=== PATIENT | female | born 1945 | race Caucasian/White ===

== ENCOUNTER → 2020-10-10 | Outpatient (CLI) | payer MEDICARE ==
[~2020-10-10] MED LIST: VISIPAQUE 320 MG/ML, 150ML BOTTLE ONE
[2020-10-10 10:36] LABS: CREATININE 0.94 mg/dL (0.55-1.02)
== END | disposition home or self-care (01) ==
LOC: CVU 09:19
PROVIDERS: ATTEND Internal Medicine Cardiovascular Disease
DX: I65.23 Occlusion and stenosis of bilateral carotid arteries (principal); N94.89 Other specified conditions associated with female genital organs and menstrual cycle; I10 Essential (primary) hypertension; R20.0 Anesthesia of skin; I35.8 Other nonrheumatic aortic valve disorders; Z86.711 Personal history of pulmonary embolism
CPT/HCPCS: 36415; 71275; 74174; 82565; 93880; Q9967

== ENCOUNTER 2020-10-21 10:08 | Inpatient (IN) | payer MEDICARE ==
[~2020-10-21] VITALS: Ht 161.3 cm; Wt 100.6 kg
[2020-10-21] MEDS ORDERED: ONDANSETRON 2MG/ML, 2ML IV PRN (11:00)
[2020-10-21] MEDS ORDERED: SODIUM CHLORIDE 0.9% 1,000 ML IV ONE (11:00)
[2020-10-21] MEDS ORDERED: IRBE300T8 PO (11:19)
[2020-10-21] MEDS ORDERED: ATOR20TA37 PO (11:19)
[2020-10-21] MEDS ORDERED: MELO7.5T31 PO (11:19)
[2020-10-21] MEDS ORDERED: CHLO25TA PO (11:19)
[2020-10-21] MEDS ORDERED: METH2.5T PO (11:19)
[2020-10-21] MEDS ORDERED: CARV12.52 PO ×2 (11:19)
[2020-10-21] MEDS ORDERED: FOLI0.8C PO (11:19)
[2020-10-21] MEDS ORDERED: ALEN70TA77 PO (11:19)
[2020-10-21] MEDS ORDERED: AMLO-150 PO (11:19)
[2020-10-21] MEDS ORDERED: LEVO50TA5 PO (11:19)
[2020-10-21] MEDS ORDERED: Potassium PO (11:23)
[2020-10-21] MEDS ORDERED: CHOL500045 PO (11:23)
[2020-10-21] MEDS ORDERED: APIX2.5T PO (11:23)
[2020-10-21] MEDS ORDERED: DIPH50CA26 PO (11:23)
[2020-10-21] MEDS ORDERED: ACET-76 PO (11:23)
[2020-10-21 11:27] VITALS: BP 190/84
[2020-10-21] MEDS ORDERED: PLEASE ENTER ALLERGIES MC SCH (11:30)
[2020-10-21 11:41] LABS: BASOPHILS % (AUTO) 1 % (0-1); EOSINOPHILS % (AUTO) 2 % (1-7); LYMPHOCYTES % (AUTO) 33 % (22-44); MEAN CORPUSCULAR HEMOGLOBIN 32.4 pg (27.0-34.8); MEAN CORPUSCULAR HGB CONC 34.3 g/dL (32.4-35.8); MEAN PLATELET VOLUME 7.6 fL (7.4-10.4); MONOCYTES % (AUTO) 6 % (2-9); NEUTROPHILS % (AUTO) 59 % (42-75); PLATELET COUNT 155 x10^3/uL (130-400); RED BLOOD COUNT 4.91 x10^6/uL (3.82-5.3); RED CELL DISTRIBUTION WIDTH 14.7 % (9.6-15.2)
[2020-10-21 11:47] LABS: INTERNATIONAL NORMALIZED RATIO 1.07 (0.93-1.1); PROTHROMBIN TIME 11.4 Seconds (9.6-11.5)
[2020-10-21 11:49] LABS: ALBUMIN 4.1 g/dL (3.4-5.0); ANION GAP 5 mmol/L (5-15); CALCIUM 9.6 mg/dL (8.5-10.1); CHLORIDE 111 mmol/L (98-107)
[2020-10-21 11:53] LABS: ALANINE AMINOTRANSFERASE 26 U/L (12-78); ALKALINE PHOSPHATASE 66 U/L (45-117); BILIRUBIN,TOTAL 1.4 mg/dL (0.2-1.0); CREATININE 0.85 mg/dL (0.55-1.02); TOTAL PROTEIN 6.9 g/dL (6.4-8.2)
[2020-10-21] MEDS ORDERED: FENTANYL PF 250 MCG/5ML ONE (11:56)
[2020-10-21] MEDS ORDERED: DEXAMETHASONE 4 MG/ML, 1ML ONE (11:58)
[2020-10-21] MEDS ORDERED: PHENYLEPHRINE 10 MG/ML ONE (11:58)
[2020-10-21] MEDS ORDERED: CEFAZOLIN 1,000 MG ONE (12:33)
[2020-10-21] MEDS ORDERED: ONDANSETRON 2MG/ML, 2ML ONE (12:33)
[2020-10-21] MEDS ORDERED: SUCCINYLCHOLINE 20 MG/ML, 10ML ONE (12:33)
[2020-10-21] MEDS ORDERED: PROPOFOL 10 MG/ML, 20ML ONE (12:33)
[2020-10-21] MEDS ORDERED: ROCURONIUM 10MG/ML,5ML ONE (12:33)
[2020-10-21] MEDS ORDERED: PROTAMINE SULFATE 10 MG/ML, 5ML ONE (12:34)
[2020-10-21] MEDS ORDERED: HYDROcodone/APAP 5/325 TABLET PO PRN (13:00)
[2020-10-21] MEDS ORDERED: ACETAMINOPHEN 500 MG TABLET PO PRN (13:00)
[2020-10-21] MEDS ORDERED: LABETALOL 20 MG/4 ML IVPush PRN (13:00)
[2020-10-21] MEDS ORDERED: ACETAMINOPHEN 325 MG TABLET PO PRN (13:00)
[2020-10-21] MEDS ORDERED: hydrALAzine 20 MG/ML, 1ML IVPush PRN ×2 (13:00→15:30)
[2020-10-21] MEDS: PLEASE ENTER HEIGHT AND WEIGHT MC SCH ×3 (14:50→23:51)
[2020-10-21] MEDS ORDERED: AMLODIPINE 5 MG TABLET ONE (15:27)
[2020-10-21 15:30] VITALS: BP 146/75
[2020-10-21 19:21] VITALS: BP 155/83
[2020-10-21 20:30] VITALS: BP 135/72
[2020-10-21] MEDS: APIXABAN 2.5 MG TABLET PO SCH (20:38)
[2020-10-21] MEDS ORDERED: ATORVASTATIN 10 MG TABLET PO SCH (21:00)
[2020-10-21] MEDS ORDERED: DIPHENHYDRAMINE 50 MG CAPSULE PO PRN (21:00)
[2020-10-21] MEDS ORDERED: CARVEDILOL 6.25 MG TABLET PO SCH ×2 (21:00)
[2020-10-21] MEDS ORDERED: AMLODIPINE 5 MG TABLET PO SCH (21:00)
[2020-10-22 00:06] VITALS: BP 146/75
[2020-10-22 05:29] LABS: BASOPHILS % (AUTO) 0 % (0-1); EOSINOPHILS % (AUTO) 0 % (1-7); LYMPHOCYTES % (AUTO) 20 % (22-44); MEAN CORPUSCULAR HEMOGLOBIN 32.7 pg (27.0-34.8); MEAN CORPUSCULAR HGB CONC 34.8 g/dL (32.4-35.8); MEAN PLATELET VOLUME 7.6 fL (7.4-10.4); MONOCYTES % (AUTO) 5 % (2-9); NEUTROPHILS % (AUTO) 74 % (42-75); PLATELET COUNT 77 x10^3/uL (130-400); RED BLOOD COUNT 4.54 x10^6/uL (3.82-5.3); RED CELL DISTRIBUTION WIDTH 14.9 % (9.6-15.2)
[2020-10-22 05:42] LABS: CHLORIDE 111 mmol/L (98-107)
[2020-10-22 05:43] LABS: ANION GAP 6 mmol/L (5-15); CREATININE 0.79 mg/dL (0.55-1.02)
[2020-10-22] MEDS ORDERED: LEVOTHYROXINE 50 MCG TABLET PO SCH (06:00)
[2020-10-22 07:25] VITALS: BP 156/78
[2020-10-22] MEDS ORDERED: CHLORTHALIDONE 25 MG TABLET PO SCH (09:00)
[2020-10-22] MEDS ORDERED: FOLIC ACID 1 MG TABLET PO SCH (09:00)
[2020-10-22] MEDS ORDERED: CARVEDILOL 12.5 MG TABLET PO SCH ×2 (09:00)
[2020-10-22] MEDS ORDERED: MELOXICAM 15 MG TABLET PO SCH (09:00)
[2020-10-22] MEDS ORDERED: POTASSIUM 99 MG HOMEMEDPO SCH (09:00)
[2020-10-22] MEDS ORDERED: IRBESARTAN 300 MG TABLET PO SCH (09:00)
[2020-10-22] MEDS ORDERED: METHOTREXATE 2.5 MG TABLET PO SCH (09:00)
[2020-10-22] MEDS: APIXABAN 2.5 MG TABLET PO SCH (09:26)
[2020-10-22] MEDS: PLEASE ENTER HEIGHT AND WEIGHT MC SCH (11:13)
[2020-10-22 14:00] VITALS: BP 125/76
[2020-10-28] MEDS ORDERED: ALENDRONATE 70 MG TABLET PO SCH (06:30)
== END 2020-10-22 17:04 | disposition home or self-care (01) | DRG 266 ==
LOC: ORIP 10:08 → 5SO 14:11 → DCLOUNGE 10-22 16:43
PROVIDERS: ADMIT Internal Medicine Cardiovascular Disease; ATTEND Internal Medicine Cardiovascular Disease
PROC: B24BZZ4 Ultrasonography of Heart with Aorta, Transesophageal (ICD-10-PCS; 2020-10-21)
PROC: 02RF38Z Replacement of Aortic Valve with Zooplastic Tissue, Percutaneous Approach (ICD-10-PCS; principal; 2020-10-21 13:30)
DX: I35.0 Nonrheumatic aortic (valve) stenosis (principal); Z00.6 Encounter for examination for normal comparison and control in clinical research program; I50.33 Acute on chronic diastolic (congestive) heart failure; D68.69 Other thrombophilia; R17 Unspecified jaundice; Z20.822 Contact with and (suspected) exposure to COVID-19; D69.6 Thrombocytopenia, unspecified; D72.829 Elevated white blood cell count, unspecified; E66.01 Morbid (severe) obesity due to excess calories; E78.5 Hyperlipidemia, unspecified; I11.0 Hypertensive heart disease with heart failure; R94.31 Abnormal electrocardiogram [ECG] [EKG]
CPT/HCPCS: 33361; 36415; 80048; 80053; 85025; 85347; 85610; 86850; 86900; 86923; 87635; 93005; 93306; 93312; 93321; 93325; 93355; C1760; C1769; C1894; G0378; J0690; J1100; J2405; J2704; J2720; J3010; J0330; J0360; J2370; Q9967

== ENCOUNTER → 2020-12-02 | Outpatient (CLI) | payer MEDICARE ==
[~2020-12-02] MED LIST changes: +ACET-76 PO; +ALEN70TA77 PO; +AMLO-150 PO; +APIX2.5T PO; +ATOR20TA37 PO; +CARV12.52 PO; +CHLO25TA PO; +CHOL500045 PO; +DIPH50CA26 PO; +FOLI0.8C PO; +IRBE300T8 PO; +LEVO50TA5 PO; +MELO7.5T31 PO; +METH2.5T PO; +Potassium PO; -VISIPAQUE 320 MG/ML, 150ML BOTTLE ONE
== END | disposition home or self-care (01) ==
LOC: CFH 09:34
PROVIDERS: ATTEND Internal Medicine Cardiovascular Disease
DX: Z01.810 Encounter for preprocedural cardiovascular examination (principal); I65.29 Occlusion and stenosis of unspecified carotid artery; I10 Essential (primary) hypertension; E78.5 Hyperlipidemia, unspecified; Z87.891 Personal history of nicotine dependence; Z79.01 Long term (current) use of anticoagulants; Z95.2 Presence of prosthetic heart valve
CPT/HCPCS: 93306; 93356